=== PATIENT | male | born 1955 | race Caucasian/White ===

== ENCOUNTER → 2018-04-14 | Outpatient (CLI) | payer BC, OTHER ==
--- NOTE | ~2018-04-14 | 2DMMODE ---
[facility] [place] [address] 2 D/M-MODE ECHOCARDIOGRAM Name: NAVJUANITA Sadi Room #: REG [facility]#: [id number] Admission: 04/14/18 Attend Phys: FAM - Family physi Discharge: Date of : 57 Date of Service: 04/14/18 1154 Report #: [id number] THIS REPORT FOR: //name// APPROVED REPORT Study performed: 04/14/2018 08:40:04 EXAM: Comprehensive 2D, Doppler, and color-flow Echocardiogram Patient Location: Out-Patient Status: routine BSA: 2.13 HR: 59 bpm BP: 145/86 mmHg Rhythm: NSR Other Information Study Quality: Good Indications Elevated calcium score, Pre-Op back procedure. Hx: HLP 2D Dimensions RVDd: 38.92 mm LVEF(%): 48.26 (>50%) IVSd: 10.32 (7-11mm) LVOT Diam: 23.18 (18-24mm) LVDd: 46.48 mm PWd: 10.07 (7-11mm) Ascending Ao: 35.98 (22-36mm) LVDs: 35.21 (25-40mm) Aortic Root: 42.57 mm Mims's LVEF: 48.26 % Volumes Left Atrial Volume (Systole) Single Plane 4CH: 52.96 mL Single Plane 2CH: 41.05 mL LA ESV Index: 24.00 mL/m2 Aortic Valve AoV Peak Mitchell.: 1.33 m/s AO Peak Gr.: 7.04 mmHg LVOT Max P.40 mmHg LVOT Max V: 0.92 m/s SANDRITA Vmax: 2.93 cm2 AI Vmax: 3.99 m/s AI Kane: 1.67 m/s2 AI PHT: 692.03 ms [facility] [place] [address] 2 D/M-MODE ECHOCARDIOGRAM Name: JUANITA CHOPRA Room #: [facility] [place]#: [id number] Admission: 04/14/18 Attend Phys: [facility] - [facility] physi Discharge: Date of : 57 Date of Service: 04/14/18 1154 Report #: [id number] Mitral Valve E/A Ratio: 0.7 MV Decel. Time: 195.53 ms MV E Max Mitchell.: 0.64 m/s MV A Mitchell.: 0.86 m/s MV PHT: 56.70 ms IVRT: 119.95 ms Pulmonary Valve PV Peak Mitchell.: 1.06 m/s PV Peak Gr.: 4.49 mmHg Pulmonary Vein P Vein S: 0.62 m/s P Vein A: 0.29 m/s P Vein D: 0.42 m/s P Vein A Dur.: 124.6 msec P Vein S/D Ratio: 1.48 Tricuspid Valve TR Peak Mitchell.: 2.23 m/s RAP Estimate: 5.00 mmHg TR Peak Gr.: 19.97 mmHg PA Pressure: 25.00 mmHg Left Ventricle The left ventricle is normal size. There is normal left ventricular wall thickness. Left ventricular systolic function is normal. LVEF is 50-55%. Mild diastolic dysfunction is present (impaired relaxation pattern). Right Ventricle The right ventricle is normal size. The right ventricular systolic function is normal. Atria The left atrium size is normal. The right atrium size is normal. Aortic Valve Aortic valve leaflets are mildly thickened. Mild aortic regurgitation. There is no aortic valvular stenosis. Mitral Valve The mitral valve is normal in structure. Trace mitral regurgitation. Tricuspid Valve The tricuspid valve is normal in structure. Trace to mild tricuspid regurgitation. Estimated PAP of 25mmHg. [address] [address] 2 D/M-MODE ECHOCARDIOGRAM Name: JUANITA CHOPRA Room #: REG [place]#: [id number] Admission: 04/14/18 Attend Phys: [facility] - [facility] Discharge: Date of : 57 Date of Service: 04/14/18 1154 Report #: [id number] Pulmonic Valve The pulmonary valve is normal in structure. Trace pulmonic regurgitation. Great Vessels Aortic root is dilated at the level of the sinuses at 4.3cm. The ascending aorta is normal in size. IVC is normal in size and collapses >50% with inspiration. Pericardium There is no pericardial effusion. <Conclusion> The left ventricle is normal size. LVEF is 50-55%. Aortic valve leaflets are mildly thickened. Mild aortic regurgitation. The mitral valve is normal in structure. Trace mitral regurgitation. The tricuspid valve is normal in structure. Trace to mild tricuspid regurgitation. Estimated PAP of 25mmHg. The pulmonary valve is normal in structure. Trace pulmonic regurgitation. There is no pericardial effusion. <ELECTRONICALLY SIGNED> By: Aakash Foreman MD 04/14/18 1154 1154 1154 Aakash Foreman MD /INF
== END ==
LOC: NUC 08:07
DX: I35.1 Nonrheumatic aortic (valve) insufficiency (principal); I35.8 Other nonrheumatic aortic valve disorders; E78.5 Hyperlipidemia, unspecified; I25.10 Atherosclerotic heart disease of native coronary artery without angina pectoris